=== PATIENT | male | born 1985 | race Caucasian/White ===

== ENCOUNTER 2018-01-21 21:39 | Emergency (ER) | payer BC ==
[2018-01-21] MEDS: FLUORESCEIN OPHTH 1 MG STRIP OD (23:30)
[2018-01-21] MEDS: TETRACAINE 0.5% OPHTH SOLN 4ML OD (23:30)
== END 2018-01-21 23:54 | disposition home or self-care (01) ==
LOC: M ED 21:39
DX: S05.01XD Injury of conjunctiva and corneal abrasion without foreign body, right eye, subsequent encounter (principal); X58.XXXA Exposure to other specified factors, initial encounter; Y92.89 Other specified places as the place of occurrence of the external cause; F17.200 Nicotine dependence, unspecified, uncomplicated
CPT/HCPCS: 65205

== ENCOUNTER 2018-06-10 19:04 | Emergency (ER) | payer SELFPAY ==
[2018-06-10] MEDS: TETRACAINE 0.5% OPHTH SOLN 4ML XX (21:00)
[2018-06-11] MEDS: LISSAMINE GREEN OPHTH 1.5 MG STRIP OD (00:04)
[2018-06-11] MEDS: FLUORESCEIN OPHTH 1 MG STRIP OD (00:04)
[2018-06-11] MEDS: NORCO 5/325MG TABLET (BULK FOR ED) PO (00:38)
[2018-06-11] MEDS: POLYTRIM OPTH DROPS 10ML OD (00:38)
[2018-06-11] MEDS: IBUPROFEN 600 MG TAB PO (00:38)
== END 2018-06-11 00:45 | disposition home or self-care (01) ==
LOC: M ED 06-11 00:45
DX: S05.00XA Injury of conjunctiva and corneal abrasion without foreign body, unspecified eye, initial encounter (principal); X58.XXXA Exposure to other specified factors, initial encounter; Y92.9 Unspecified place or not applicable; Y93.9 Activity, unspecified; Y99.9 Unspecified external cause status; R56.9 Unspecified convulsions; Z72.0 Tobacco use; Z88.5 Allergy status to narcotic agent
CPT/HCPCS: 99284

== ENCOUNTER 2023-05-07 11:35 | Day surgery (SDC) | payer OTHER ==
[~2023-05-07] VITALS: Ht 180.3 cm; Wt 119.3 kg
[~2023-05-07 11:35] MED LIST: ceFAZolin SOD 2 GM in IV 1 EA IV ONE
[2023-05-07] MEDS ORDERED: LR 1,000 ML IV SCH ×2 (12:30→15:15)
[2023-05-07] MEDS ORDERED: LIDOCAINE 2% 100MG/5ML SDV (FOR ANES.) As Ordered ONE (13:59)
[2023-05-07] MEDS ORDERED: propofoL 200 MG/20 ML VIAL As Ordered ONE ×2 (13:59→14:46)
[2023-05-07] MEDS ORDERED: ROCURONIUM BROMIDE 50MG/5ML VIAL As Ordered ONE (13:59)
[2023-05-07] MEDS ORDERED: ONDANSETRON 4MG 2ML VIAL As Ordered ONE (14:00)
[2023-05-07] MEDS ORDERED: MIDAZOLAM INJ 2MG/2ML VIAL As Ordered ONE (14:00)
[2023-05-07] MEDS ORDERED: fentaNYL 250 MCG/5 ML INJECTION As Ordered ONE (14:00)
[2023-05-07] MEDS ORDERED: ACETAMINOPHEN 1000MG 100ML IV BAG As Ordered ONE (14:41)
[2023-05-07] MEDS ORDERED: SUGAMMADEX SODIUM 500 MG/5 ML VIAL (BRIDION) As Ordered ONE (14:41)
[2023-05-07] MEDS ORDERED: HYDROMORPHONE HCL 0.5 MG/ 0.5 ML SYRINGE IV PRN (15:15)
[2023-05-07] MEDS ORDERED: oxyCODONE 5MG TAB PO PRN (15:15)
[2023-05-07] MEDS ORDERED: fentaNYL 100 MCG/2 ML INJECTION IV PRN (15:15)
[2023-05-07] MEDS ORDERED: ONDANSETRON 4MG 2ML VIAL IV PRN (15:15)
[2023-05-07] MEDS ORDERED: NS 1,000 ML IV SCH (15:35)
[2023-05-07] MEDS ORDERED: NORCO, ANEXSIA 5/325MG TABLET (HYDROcodone/ACETAMINOPHEN) PO PRN ×2 (15:35)
[2023-05-07] MEDS ORDERED: ALBUTEROL SULFATE 2.5MG/0.5ML INH NEB SOLN INH ONE (15:40)
[2023-05-07] MEDS ORDERED: IPRATROPIUM 0.5MG/ALBUTEROL 2.5MG INH SOL UD 3ML (DUONEB) As Ordered ONE (15:41)
[2023-05-07] MEDS ORDERED: IPRATROPIUM 0.5MG/ALBUTEROL 2.5MG INH SOL UD 3ML (DUONEB) NEB ONE (15:45)
[2023-05-07 16:40] VITALS: BP 146/70; TEMP 98.1; O2SAT 98
== END 2023-05-07 16:51 | disposition home or self-care (01) ==
LOC: M SDC 11:35
PROVIDERS: ATTEND Surgery
DX: K42.9 Umbilical hernia without obstruction or gangrene (principal); Z79.899 Other long term (current) drug therapy; Z91.013 Allergy to seafood; J45.909 Unspecified asthma, uncomplicated; F17.200 Nicotine dependence, unspecified, uncomplicated
CPT/HCPCS: 49591; 88302; C1781; C9290; J0131; J0665; J0690; J1100; J1170; J2250; J2405; J3010